=== PATIENT | female | born 1990 | race Caucasian/White ===

== ENCOUNTER 2022-09-09 21:08 | Emergency (ER) | payer MEDICAID ==
[~2022-09-09] VITALS: Ht 167.6 cm; Wt 79.4 kg
[2022-09-09 21:26] VITALS: BP_SYST 133
[2022-09-09 22:10] LABS: BASOPHILS % (AUTO) 0.5 % (0.0-2.0); EOSINOPHILS # (AUTO) 0.1 K/uL (0.0-0.4); HEMATOCRIT 43.6 % (36-48); HEMOGLOBIN 14.7 g/dL (12.0-16.0); LYMPHOCYTES # (AUTO) 2.3 K/uL (1.0-5.5); LYMPHOCYTES % (AUTO) 28.4 % (20.5-51.5); MEAN CORPUSCULAR HEMOGLOBIN 30 pg (27-31); MEAN CORPUSCULAR HGB CONC 34 % (32-36); MEAN CORPUSCULAR VOLUME 90 fL (79.0-98.0); MONOCYTES # (AUTO) 0.6 K/uL (0.0-1.0); MONOCYTES % (AUTO) 7.1 % (1.7-9.3); NEUTROPHILS # (AUTO) 5.2 K/uL (1.8-7.7); PLATELET COUNT (AUTO) 244 K/uL (130-430); RED BLOOD CELL COUNT(AUTO) 4.84 MIL/uL (4.2-6.2); RED CELL DISTRIBUTION WIDTH 13.3 % (9.0-15.0); WHITE BLOOD COUNT (AUTO) 8.2 K/uL (4.8-10.8)
[2022-09-09 22:26] LABS: BILIRUBIN,URINE NEGATIVE (NEGATIVE); CLARITY/URINE CLEAR (CLEAR); COLOR,URINE YELLOW (YELLOW); GLUCOSE,URINE NEGATIVE (NEGATIVE); KETONES,URINE NEGATIVE (NEGATIVE); LEUKOCYTE ESTERASE ,URINE NEGATIVE (NEGATIVE); NITRITE, URINE NEGATIVE (NEGATIVE); PROTEIN URINE NEGATIVE (NEGATIVE); UROBILINOGEN,URINE 0.2 (0.2-1.0)
[2022-09-09] MEDS ORDERED: NACL 0.9% 1,000 ML IV ONE (22:30)
[2022-09-09] MEDS ORDERED: ONDANSETRON HCL 4 MG/2 ML VIAL IVP ONE (22:30)
[2022-09-09] MEDS ORDERED: MORPHINE 4 MG INJ. 4 MG/ML VIAL IVP ONE (22:30)
[2022-09-09 22:31] LABS: BLOOD, URINE TRACE (NEGATIVE)
[2022-09-09 22:33] LABS: WBC,URINE NONE SEEN /HPF (0-3)
[2022-09-09 22:34] LABS: BACTERIA,URINE RARE /HPF (None Seen); MUCUS,URINE None Seen /LPF (None Seen)
[2022-09-09 22:40] LABS: ANION GAP 8 (5-15); CALCIUM 8.9 mg/dL (8.4-11.0); CHLORIDE 102 mmol/L (98-107); CREATININE 0.72 mg/dL (0.55-1.30); GLUCOSE 86 mg/dL (70-99); UREA NITROGEN, BLOOD 24 mg/dL (8-21)
[2022-09-09 22:45] LABS: ALANINE AMINOTRANSFERASE 27 U/L (12-78); ALBUMIN 3.9 g/dL (3.4-4.8); AMYLASE 90 U/L (0-100); ASPARTATE AMINOTRANSFERASE 24 U/L (10-37); LIPASE 135 U/L (73-393); TOTAL BILIRUBIN 0.4 mg/dL (0.0-1.0)
[2022-09-09 22:47] LABS: C-REACTIVE PROTEIN QUANT < 0.2 mg/dL (0-0.5); GFR AFRICAN AMERICAN 120 mL/min (>90)
[2022-09-09 22:48] LABS: ACETONE, SERUM NEGATIVE (NEGATIVE)
[2022-09-10] MEDS ORDERED: ONDANSETRON HCL 4 MG/2 ML VIAL IVP ONE (01:15)
[2022-09-10] MEDS ORDERED: MORPHINE 4 MG INJ. 4 MG/ML VIAL IVP ONE (01:15)
[2022-09-10] MEDS ORDERED: ACET-2634 PO (01:17)
[2022-09-10] MEDS ORDERED: HYDR-3917 PO (01:17)
[2022-09-10] MEDS ORDERED: IBUP-1970 PO (01:17)
[2022-09-10] MEDS ORDERED: ONDA-8 TL (01:19)
[2022-09-10 02:29] VITALS: BP_SYST 111
== END 2022-09-10 02:29 | disposition home or self-care (01) ==
LOC: SED 21:08
DX: R10.2 Pelvic and perineal pain (principal); J45.909 Unspecified asthma, uncomplicated; F12.90 Cannabis use, unspecified, uncomplicated; Z87.42 Personal history of other diseases of the female genital tract; Z79.899 Other long term (current) drug therapy
CPT/HCPCS: 99285; 74176; 96374; 76856; 96361; 96375 ×2; 80053; 81000; 82009; 82150; 84703; 83690; 85025; 86140; 36415; 76376; 81025; 83605; 96376; J2405 ×2; J2270 ×2; J7030

== ENCOUNTER 2022-09-16 21:28 | Inpatient (IN) | payer MEDICAID ==
[~2022-09-16] VITALS: Ht 167.6 cm; Wt 90.7 kg
[~2022-09-16 21:28] MED LIST: ACET-2634 PO; HYDR-3917 PO; IBUP-1970 PO; ONDA-8 TL
[2022-09-16 21:34] VITALS: BP_SYST 136
[2022-09-16] MEDS ORDERED: ONDANSETRON HCL 4 MG/2 ML VIAL IVP ONE (22:15)
[2022-09-16] MEDS ORDERED: MORPHINE 4 MG INJ. 4 MG/ML VIAL IVP ONE (22:15)
[2022-09-16] MEDS ORDERED: NACL 0.9% 1,000 ML IV ONE (22:15)
[2022-09-16] MEDS ORDERED: KETOROLAC TROMETHAMINE 30 MG VIAL IVP ONE (23:15)
[2022-09-16 23:28] LABS: BASOPHILS % (AUTO) 0.6 % (0.0-2.0); EOSINOPHILS # (AUTO) 0.1 K/uL (0.0-0.4); EOSINOPHILS % (AUTO) 1.8 % (0.0-4.0); HEMATOCRIT 38.5 % (36-48); LYMPHOCYTES # (AUTO) 2.3 K/uL (1.0-5.5); LYMPHOCYTES % (AUTO) 29.9 % (20.5-51.5); MEAN CORPUSCULAR HEMOGLOBIN 30 pg (27-31); MEAN CORPUSCULAR HGB CONC 34 % (32-36); MEAN CORPUSCULAR VOLUME 90 fL (79.0-98.0); MONOCYTES # (AUTO) 0.6 K/uL (0.0-1.0); MONOCYTES % (AUTO) 7.9 % (1.7-9.3); NEUTROPHILS # (AUTO) 4.5 K/uL (1.8-7.7); NEUTROPHILS % (AUTO) 59.8 % (40.0-70.0); PLATELET COUNT (AUTO) 228 K/uL (130-430); RED BLOOD CELL COUNT(AUTO) 4.29 MIL/uL (4.2-6.2); RED CELL DISTRIBUTION WIDTH 13.2 % (9.0-15.0); WHITE BLOOD COUNT (AUTO) 7.5 K/uL (4.8-10.8)
[2022-09-16 23:40] LABS: CALCIUM 8.5 mg/dL (8.4-11.0); CREATININE 0.72 mg/dL (0.55-1.30)
[2022-09-16 23:45] LABS: ALBUMIN 3.3 g/dL (3.4-4.8); TOTAL BILIRUBIN 0.4 mg/dL (0.0-1.0)
[2022-09-16 23:53] LABS: BILIRUBIN,URINE NEGATIVE (NEGATIVE); BLOOD, URINE 3+ (NEGATIVE); CLARITY/URINE CLEAR (CLEAR); COLOR,URINE YELLOW (YELLOW); GLUCOSE,URINE NEGATIVE (NEGATIVE); KETONES,URINE NEGATIVE (NEGATIVE); LEUKOCYTE ESTERASE ,URINE NEGATIVE (NEGATIVE); NITRITE, URINE NEGATIVE (NEGATIVE); PROTEIN URINE NEGATIVE (NEGATIVE); UROBILINOGEN,URINE 0.2 (0.2-1.0)
[2022-09-16 23:59] LABS: BACTERIA,URINE RARE /HPF (None Seen); MUCUS,URINE None Seen /LPF (None Seen); RBC,URINE 50-80 /HPF (0-3); WBC,URINE 0-3 /HPF (0-3)
[2022-09-17] MEDS ORDERED: MORPHINE 4 MG INJ. 4 MG/ML VIAL IVP ONE (00:45)
[2022-09-17 01:39] VITALS: BP_SYST 132
[2022-09-17 02:02] VITALS: BP_SYST 132
[2022-09-17] MEDS ORDERED: KETOROLAC TROMETHAMINE 30 MG VIAL IM PRN (04:00)
[2022-09-17] MEDS: KETOROLAC TROMETHAMINE 30 MG VIAL IVP PRN ×3 (04:27→21:36)
[2022-09-17 08:00] VITALS: BP_SYST 108
[2022-09-17 12:00] VITALS: BP_SYST 122
[2022-09-17 16:00] VITALS: BP_SYST 110
[2022-09-17 20:30] VITALS: BP_SYST 119
[2022-09-18] VITALS (7 sets, daily range): BP systolic 102–121
[2022-09-18] MEDS: KETOROLAC TROMETHAMINE 30 MG VIAL IVP PRN ×2 (05:44→12:45)
[2022-09-18 06:36] LABS: BASOPHILS # (AUTO) 0.1 K/uL (0.0-0.2); BASOPHILS % (AUTO) 0.7 % (0.0-2.0); EOSINOPHILS # (AUTO) 0.2 K/uL (0.0-0.4); EOSINOPHILS % (AUTO) 3.5 % (0.0-4.0); HEMATOCRIT 39.5 % (36-48); HEMOGLOBIN 13.2 g/dL (12.0-16.0); LYMPHOCYTES # (AUTO) 2.5 K/uL (1.0-5.5); LYMPHOCYTES % (AUTO) 36.2 % (20.5-51.5); MEAN CORPUSCULAR HEMOGLOBIN 30 pg (27-31); MEAN CORPUSCULAR HGB CONC 34 % (32-36); MEAN CORPUSCULAR VOLUME 91 fL (79.0-98.0); MONOCYTES # (AUTO) 0.5 K/uL (0.0-1.0); MONOCYTES % (AUTO) 7.9 % (1.7-9.3); NEUTROPHILS # (AUTO) 3.5 K/uL (1.8-7.7); NEUTROPHILS % (AUTO) 51.7 % (40.0-70.0); PLATELET COUNT (AUTO) 231 K/uL (130-430); RED BLOOD CELL COUNT(AUTO) 4.36 MIL/uL (4.2-6.2); RED CELL DISTRIBUTION WIDTH 13.2 % (9.0-15.0); WHITE BLOOD COUNT (AUTO) 6.9 K/uL (4.8-10.8)
[2022-09-18 06:46] LABS: CALCIUM 8.6 mg/dL (8.4-11.0); CREATININE 0.66 mg/dL (0.55-1.30)
[2022-09-18] MEDS ORDERED: FAMOTIDINE PF 20 MG/2 ML VIAL IVP ONE (09:15)
[2022-09-18] MEDS ORDERED: ROCURONIUM BROMIDE 10 MG/ML (ZEMURON) ONE (16:15)
[2022-09-18] MEDS ORDERED: PROPOFOL 200MG/ 20ML VIAL (DIPRIVAN) IV ONE (16:15)
[2022-09-18] MEDS ORDERED: NS IRRIG SOLN 1000 ML IR ONE (16:15)
[2022-09-18] MEDS ORDERED: ceFAZolin SODIUM 2 GM VIAL ONE (16:15)
[2022-09-18] MEDS ORDERED: MIDAZOLAM HCL 5 MG/5 ML VIAL ONE (16:15)
[2022-09-18] MEDS ORDERED: LR 1,000 ML IV.SOLN IV ONE (16:15)
[2022-09-18] MEDS ORDERED: NS 1000 ML IV.SOLN IV ONE (16:15)
[2022-09-18] MEDS ORDERED: SEVOFLURANE 15 MIN GAS INH ONE (16:15)
[2022-09-18] MEDS ORDERED: fentaNYL CITRATE 250 MCG/5 ML AMP ONE (16:15)
[2022-09-18] MEDS ORDERED: ONDANSETRON HCL 4 MG/2 ML VIAL IVP PRN ×2 (16:45→17:30)
[2022-09-18] MEDS ORDERED: METOCLOPRAMIDE HCL 10 MG/2 ML VIAL IVP PRN (16:45)
[2022-09-18] MEDS ORDERED: fentaNYL CITRATE/PF 100 MCG/2 ML AMP IVP PRN ×2 (16:45)
[2022-09-18] MEDS ORDERED: HYDROcodone/ACETAMIN 5-325 MG TAB (NORCO/ VICODIN) PO PRN (17:30)
[2022-09-18] MEDS ORDERED: NALOXONE HCL 0.4 MG/ML AMP (NARCAN) IVP PRN (17:30)
[2022-09-18] MEDS ORDERED: fentaNYL CITRATE/PF 100 MCG/2 ML AMP ONE (17:32)
[2022-09-18] MEDS ORDERED: HYDROmorphone 1 MG/ML INJ. CARTRIDGE ONE (17:58)
[2022-09-18] MEDS ORDERED: HYDROmorphone 1 MG/ML INJ. CARTRIDGE IVP ONE (18:30)
[2022-09-18] MEDS: SIMETHICONE 80 MG TAB.CHEW PO SCH (19:39)
[2022-09-18] MEDS: FAMOTIDINE PF 20 MG/2 ML VIAL IVP SCH (19:40)
[2022-09-18] MEDS: OXYCODONE/ACETAMINOPHEN 5-325 TABLET PO PRN (20:08)
[2022-09-19] VITALS: BP_SYST 116
[2022-09-19] MEDS: OXYCODONE/ACETAMINOPHEN 5-325 TABLET PO PRN ×4 (01:06→15:44)
[2022-09-19 06:15] LABS: BASOPHILS # (AUTO) 0.1 K/uL (0.0-0.2); BASOPHILS % (AUTO) 0.6 % (0.0-2.0); EOSINOPHILS # (AUTO) 0.1 K/uL (0.0-0.4); HEMATOCRIT 36.9 % (36-48); HEMOGLOBIN 12.7 g/dL (12.0-16.0); LYMPHOCYTES # (AUTO) 1.2 K/uL (1.0-5.5); LYMPHOCYTES % (AUTO) 10.5 % (20.5-51.5); MEAN CORPUSCULAR HEMOGLOBIN 31 pg (27-31); MEAN CORPUSCULAR HGB CONC 35 % (32-36); MEAN CORPUSCULAR VOLUME 90 fL (79.0-98.0); MONOCYTES # (AUTO) 0.5 K/uL (0.0-1.0); MONOCYTES % (AUTO) 4.1 % (1.7-9.3); NEUTROPHILS # (AUTO) 9.7 K/uL (1.8-7.7); NEUTROPHILS % (AUTO) 83.8 % (40.0-70.0); PLATELET COUNT (AUTO) 209 K/uL (130-430); RED BLOOD CELL COUNT(AUTO) 4.09 MIL/uL (4.2-6.2); RED CELL DISTRIBUTION WIDTH 13.3 % (9.0-15.0); WHITE BLOOD COUNT (AUTO) 11.5 K/uL (4.8-10.8)
[2022-09-19 06:33] LABS: CALCIUM 8.2 mg/dL (8.4-11.0); CREATININE 0.65 mg/dL (0.55-1.30)
[2022-09-19 07:56] VITALS: BP_SYST 107
[2022-09-19] MEDS: SIMETHICONE 80 MG TAB.CHEW PO SCH ×2 (08:16→12:35)
[2022-09-19] MEDS: FAMOTIDINE PF 20 MG/2 ML VIAL IVP SCH (08:19)
[2022-09-19 09:57] VITALS: BP_SYST 107; BP_SYST 99
[2022-09-19] MEDS ORDERED: FAMO-132 PO (10:00)
[2022-09-19] MEDS ORDERED: SIME80TA15 PO (10:00)
[2022-09-19] MEDS ORDERED: OXYIR5 PO (10:00)
[2022-09-19] MEDS ORDERED: PSYL0.4C2 PO (10:00)
[2022-09-19] MEDS ORDERED: BISACODYL 10 MG/SUPPOSITORY RC ONE (10:00)
[2022-09-19 11:30] VITALS: BP_SYST 105
[2022-09-19 15:18] VITALS: BP_SYST 99
== END 2022-09-19 16:20 | disposition home or self-care (01) | DRG 518 ==
LOC: SED 21:28 → SMU 09-17 00:57
PROVIDERS: ADMIT Preventive Medicine Preventive Medicine/Occupational Environmental Medicine; ATTEND Preventive Medicine Preventive Medicine/Occupational Environmental Medicine
PROC: 0DNW4ZZ Release Peritoneum, Percutaneous Endoscopic Approach (ICD-10-PCS; principal; 2022-09-18 16:10)
DX: N80.9 Endometriosis, unspecified (principal); E44.0 Moderate protein-calorie malnutrition; N73.6 Female pelvic peritoneal adhesions (postinfective); J45.909 Unspecified asthma, uncomplicated; R19.09 Other intra-abdominal and pelvic swelling, mass and lump; K21.9 Gastro-esophageal reflux disease without esophagitis; K29.70 Gastritis, unspecified, without bleeding; Z20.822 Contact with and (suspected) exposure to COVID-19; Z68.32 Body mass index [BMI] 32.0-32.9, adult
CPT/HCPCS: 36415; 76856-TC; 80048; 80053; 81000; 85025; 87086; 88305; 96361; 96374; 96375; 96376; 99285; C1727; C1782; J1170; J1885; J2250; J2270; J2405; J2704; J3010; J3490; J7030; J7120

== ENCOUNTER 2023-05-04 19:09 | Emergency (ER) | payer MEDICAID ==
[~2023-05-04] VITALS: Ht 167.6 cm; Wt 97.5 kg
[~2023-05-04 19:09] MED LIST changes: -ACET-2634 PO; +FAMO-132 PO; -HYDR-3917 PO; -IBUP-1970 PO; -ONDA-8 TL; +OXYIR5 PO; +PSYL0.4C2 PO; +SIME80TA15 PO
[2023-05-04 20:21] VITALS: BP_SYST 167; PULSE 82; RESP 18; TEMP 98.3; O2SAT 98
[2023-05-05] MEDS ORDERED: KETOROLAC TROMETHAMINE 30 MG VIAL IM ONE (02:45)
[2023-05-05] MEDS ORDERED: BUTA1CAP43 PO (03:40)
[2023-05-05 04:10] VITALS: BP_SYST 132; PULSE 76; RESP 18; TEMP 98.4; O2SAT 98
== END 2023-05-05 04:05 | disposition home or self-care (01) ==
LOC: SED 19:09
DX: G43.909 Migraine, unspecified, not intractable, without status migrainosus (principal); J45.909 Unspecified asthma, uncomplicated; Z88.8 Allergy status to other drugs, medicaments and biological substances; Z79.899 Other long term (current) drug therapy
CPT/HCPCS: 99285; 70450; 93005; 76376; 96374; J1885

== ENCOUNTER 2023-10-04 20:42 | Emergency (ER) | payer MEDICAID, OTHER ==
[~2023-10-04] VITALS: Ht 167.6 cm; Wt 97.5 kg
[~2023-10-04 20:42] MED LIST changes: +BUTA1CAP43 PO
[2023-10-04 20:58] VITALS: BP_SYST 137; PULSE 81; RESP 16; TEMP 98.1; O2SAT 98
[2023-10-04] MEDS: KETOROLAC TROMETHAMINE 30 MG VIAL IM ONE (22:33)
[2023-10-04] MEDS: ONDANSETRON HCL 4 MG/2 ML VIAL IVP ONE (23:46)
[2023-10-04] MEDS: MORPHINE 4 MG INJ. 4 MG/ML VIAL IVP ONE (23:47)
[2023-10-04] MEDS: NACL 0.9% 1,000 ML IV ONE (23:47)
[2023-10-04 23:51] LABS: CALCIUM 9.1 mg/dL (8.4-11.0); CREATININE 0.7 mg/dL (0.55-1.30); POTASSIUM 4.3 mmol/L (3.5-5.1)
[2023-10-04 23:59] LABS: BILIRUBIN,URINE NEGATIVE (NEGATIVE); COLOR,URINE YELLOW (YELLOW); GLUCOSE,URINE NEGATIVE (NEGATIVE); KETONES,URINE NEGATIVE (NEGATIVE); LEUKOCYTE ESTERASE ,URINE NEGATIVE (NEGATIVE); NITRITE, URINE NEGATIVE (NEGATIVE); PROTEIN URINE NEGATIVE (NEGATIVE); UROBILINOGEN,URINE 0.2 (0.2-1.0)
[2023-10-05 00:05] LABS: BASOPHILS % (AUTO) 0.5 % (0.0-2.0); EOSINOPHILS # (AUTO) 0.2 K/uL (0.0-0.4); EOSINOPHILS % (AUTO) 2.6 % (0.0-4.0); HEMATOCRIT 39.2 % (36-48); HEMOGLOBIN 13.3 g/dL (12.0-16.0); LYMPHOCYTES # (AUTO) 2.7 K/uL (1.0-5.5); MEAN CORPUSCULAR HEMOGLOBIN 30 pg (27-31); MEAN CORPUSCULAR HGB CONC 34 % (32-36); MEAN CORPUSCULAR VOLUME 87 fL (79.0-98.0); MONOCYTES # (AUTO) 0.6 K/uL (0.0-1.0); MONOCYTES % (AUTO) 6.5 % (1.7-9.3); NEUTROPHILS # (AUTO) 5.1 K/uL (1.8-7.7); NEUTROPHILS % (AUTO) 59.4 % (40.0-70.0); PLATELET COUNT (AUTO) 311 K/uL (130-430); RED BLOOD CELL COUNT(AUTO) 4.51 MIL/uL (4.2-6.2); RED CELL DISTRIBUTION WIDTH 13.6 % (9.0-15.0); WHITE BLOOD COUNT (AUTO) 8.6 K/uL (4.8-10.8)
[2023-10-05 00:16] LABS: BLOOD, URINE TRACE (NEGATIVE); CLARITY/URINE HAZY (CLEAR)
[2023-10-05 00:20] LABS: BACTERIA,URINE None Seen /HPF (None Seen); WBC,URINE 0-3 /HPF (0-3)
[2023-10-05] MEDS ORDERED: ONDA-8 TL (01:51)
[2023-10-05 02:28] VITALS: BP_SYST 130; PULSE 63; RESP 19; TEMP 98.7; O2SAT 94
== END 2023-10-05 02:28 | disposition home or self-care (01) ==
LOC: SED 20:42
DX: R10.30 Lower abdominal pain, unspecified (principal); J45.909 Unspecified asthma, uncomplicated; Z88.8 Allergy status to other drugs, medicaments and biological substances; Z79.899 Other long term (current) drug therapy
CPT/HCPCS: 99285; 74176; 96374; 96361; 96375; 80048; 81001; 85025; 36415; 76376; 81025; 96372; J1885; J2405; J2270; J7030; 81000; 81015